=== PATIENT | female | born 1985 ===

== ENCOUNTER 2016-07-21 17:18 | Emergency (ER) | payer OTHER ==
[2016-07-21] MEDS ORDERED: Amoxicillin/Clavulanate TAB* 875 MG PO ONE ×2 (18:40)
--- NOTE | 2016-07-21 18:47 | UC ---
Respiratory Complaint HPI - History of Current Complaint Chief Complaint: UCRespiratory Stated Complaint: SINUS PAIN,CONGESTION Time Seen by Provider: 07/21/16 18:31 Hx Obtained From: Patient Hx Last Menstrual Period: 07/15/16 ?: No Onset/Duration: Gradual Onset - has had sinus congestion for 3 weeks. has tried over the counter cold and sinus medication and the Netti pot w/o relief. now her nasal drainage is bright yellow/green and getting worse Severity Initially: Mild Severity Currently: Moderate Character: Cough: Nonproductive - "post nasal drip" Associated Signs And Symptoms: Positive: Nasal Congestion, Sinus Discomfort - fatigue, facial tenderness - Allergies/Home Medications Allergies/Adverse Reactions: Allergies Allergy/AdvReac Type Severity Reaction Status Date / Time No Known Allergies Allergy Verified 07/21/16 18:09 Home Medications: Home Medications Multiple Vitamins W/ Minerals [Multivitamin Adults] 07/21/16 [History] Pseudoephedrine-Guaifenesin [Mucinex D 60-600 mg] 1 tab PO 07/21/16 [History] PMH/Surg Hx/FS Hx/Imm Hx Previously Healthy: Yes Endocrine History Of: Denies: Diabetes, Thyroid Disease Cardiovascular History Of: Denies: Cardiac Disorders, Hypertension Respiratory History Of: Reports: Asthma - as a child Denies: COPD GI/ History Of: Denies: Ulcer - Surgical History Surgical History: None - Family History Known Family History: Positive: None - Social History Occupation: Student - [employer] student Lives: With Family Alcohol Use: Weekly Substance Use Type: None Smoking Status (MU): Never Smoked Tobacco Review of Systems Constitutional: Fatigue Skin: Negative Eyes: Negative ENT: Nasal Discharge, Other - sinus pain Respiratory: Negative Cardiovascular: Negative Genitourinary: Negative Neurological: Negative Psychological: Negative All Other Systems Reviewed And Are Negative: Yes Physical Exam Triage Information Reviewed: Yes Appearance: Well-Appearing Vital Signs: Initial Vital Signs Temp 99.2 F 07/21/16 18:05 Pulse 89 07/21/16 18:05 Resp 18 07/21/16 18:05 BP 130/71 07/21/16 18:05 Pulse Ox 97 07/21/16 18:05 Vital Signs Reviewed: Yes Eye Exam: Normal Eyes: Positive: Conjunctiva Clear. Negative: Conjunctiva Inflamed ENT: Positive: Nasal congestion, Nasal drainage, Other: - thick PND Neck exam: Normal Neck: Positive: No Lymphadenopathy Respiratory Exam: Normal Cardiovascular Exam: Normal Neurological Exam: Normal Psychological Exam: Normal Skin Exam: Normal UC Diagnostic Evaluation - Laboratory O2 Sat by Pulse Oximetry: 97 Respiratory Course/Dx - Differential Dx/Diagnosis Differential Diagnosis/HQI/PQRI: Bronchitis, Influenza, Sinusitis, Other - URI Provider Diagnoses: sinusitis Discharge - Discharge Plan Condition: Stable Disposition: HOME Prescriptions: Amoxicillin/Clavulanate TAB* [Augmentin TAB 875*] 875 mg PO BID #18 tab Patient Education Materials: Sinusitis (ED) Additional Instructions: use antibiotic as directed Increase fluids and rest take over the counter cold meds you have at home as directed return here or to the ER if your symptoms worsen
== END 2016-07-21 18:53 | disposition home or self-care (01) ==
LOC: UCEAST 17:18
DX: J32.9 Chronic sinusitis, unspecified (principal)
CPT/HCPCS: 99202; A9270-GY; G0463

== ENCOUNTER 2017-03-30 10:17 | Emergency (ER) | payer OTHER ==
[2017-03-30] MEDS ORDERED: BSS OPTH.SOL* BTL OPHTHALMIC ONE (10:33)
--- NOTE | 2017-03-30 10:33 | UC ---
Eye Complaint HPI - HPI Summary HPI Summary: right eye itching and red with clear drainage began one day after wearing contacts, does have some nasal drainage as well - History of Current Complaint Chief Complaint: UCEye Stated Complaint: EYE COMPLAINT Time Seen by Provider: 03/30/17 10:27 Hx Obtained From: Patient Hx Last Menstrual Period: 03/10/17 ?: No Onset/Duration: Sudden Onset, Lasting Days - 1 Timing: Constant Severity Initially: Mild Severity Currently: Mild Location of Injury: Conjunctiva Aggravating Factor(s): Nothing Alleviating Factor(s): Nothing Associated Signs And Symptoms: Positive: Drainage (Clear), Drainage (Purulent) - Allergies/Home Medications Allergies/Adverse Reactions: Allergies Allergy/AdvReac Type Severity Reaction Status Date / Time No Known Allergies Allergy Verified 03/30/17 10:19 PMH/Surg Hx/FS Hx/Imm Hx Previously Healthy: Yes - Surgical History Surgical History: None - Family History Known Family History: Positive: None - Social History Occupation: Works From/At Home, Student Lives: With Family Alcohol Use: Weekly Substance Use Type: None Smoking Status (MU): Never Smoked Tobacco Review of Systems Constitutional: Negative Skin: Negative Eyes: Negative, Drainage - od, Eye Redness - od ENT: Negative Respiratory: Negative Cardiovascular: Negative Gastrointestinal: Negative Genitourinary: Negative Motor: Negative Neurovascular: Negative Musculoskeletal: Negative Neurological: Negative Psychological: Negative Is Patient Immunocompromised?: No All Other Systems Reviewed And Are Negative: Yes Physical Exam Triage Information Reviewed: Yes Appearance: Well-Appearing, No Pain Distress, Well-Nourished Vital Signs: Initial Vital Signs Temp 97.9 F 03/30/17 10:20 Pulse 88 03/30/17 10:20 Resp 16 03/30/17 10:20 BP 143/87 03/30/17 10:20 Pulse Ox 98 03/30/17 10:20 Vital Signs Reviewed: No Eyes: Positive: Conjunctiva Inflamed - od, Discharge - od ENT Exam: Normal ENT: Positive: Normal ENT inspection, TMs normal. Negative: Nasal drainage, Tonsillar swelling, Tonsillar exudate, Trismus, Muffled/hoarse voice Dental Exam: Normal Neck exam: Normal Neck: Positive: Supple, Nontender, No Lymphadenopathy Respiratory Exam: Normal Respiratory: Positive: Chest non-tender, No respiratory distress, No accessory muscle use Cardiovascular Exam: Normal Cardiovascular: Positive: Pulses Normal, Brisk Capillary Refill Musculoskeletal Exam: Normal Musculoskeletal: Positive: Strength Intact, ROM Intact Neurological Exam: Normal Neurological: Positive: Alert, Muscle Tone Normal Psychological Exam: Normal Psychological: Positive: Normal Response To Family Skin Exam: Normal Re-Evaluation - Re-Evaluation First Eval Change: Unchanged - no dye up take Eye Complaint Course/Dx - Course Course Of Treatment: cipro eye drops, antihistamine - Differential Dx/Diagnosis Provider Diagnoses: OD Conjuctivitis Discharge - Discharge Plan Condition: Stable Disposition: HOME Prescriptions: Ciprofloxacin 0.3% OPTH.FLORA* [Cipro 0.3% Opth*] 1 drop RIGHT EYE Q2H #1 btl Patient Education Materials: Ciprofloxacin (Into the eye), Conjunctivitis (ED) Referrals: Allan Davies MD [Medical Doctor] - If Needed
[2017-03-30] MEDS ORDERED: Fluorescein Sodium TOPICAL* 1 MG TEST OPHTHALMIC ONE (10:34)
== END 2017-03-30 11:15 | disposition home or self-care (01) ==
LOC: UCEAST 10:17
DX: H10.9 Unspecified conjunctivitis (principal)
CPT/HCPCS: 99212; A9270-GY; G0463